=== PATIENT | female | born 1965 | race Caucasian/White ===

== ENCOUNTER 2021-11-27 10:15 | Outpatient (REF) | payer OTHER, SELFPAY ==
--- NOTE | ~2021-11-27 | XR_ITS ---
EXAMINATION: XR KNEE, RIGHT XR KNEE, LEFT CLINICAL INFORMATION: Pain. COMPARISON: None TECHNIQUE: 3 views of each knee. FINDINGS: LEFT KNEE: There is no evidence of acute fracture or dislocation of the left knee. Left knee joint spaces are maintained. No effusion is identified. Minimal spurring is seen undersurface of the patella. RIGHT KNEE: There is no evidence of acute fracture or dislocation of the right knee. No right knee effusion. Right knee joint spaces are maintained. Minimal patella spur. XR/XR knee RT 3V IMPRESSION: Minimal degenerative change of the patellofemoral joints bilaterally.
--- NOTE | ~2021-11-27 | XR_ITS ---
EXAMINATION: XR KNEE, RIGHT XR KNEE, LEFT CLINICAL INFORMATION: Pain. COMPARISON: None TECHNIQUE: 3 views of each knee. FINDINGS: LEFT KNEE: There is no evidence of acute fracture or dislocation of the left knee. Left knee joint spaces are maintained. No effusion is identified. Minimal spurring is seen undersurface of the patella. RIGHT KNEE: There is no evidence of acute fracture or dislocation of the right knee. No right knee effusion. Right knee joint spaces are maintained. Minimal patella spur. XR/XR knee LT 3V IMPRESSION: Minimal degenerative change of the patellofemoral joints bilaterally.
[2021-11-27 12:08] LABS: Creatinine Urine 153.04 mg/dL; Protein/Creatinine Ratio, Ur 0.07 (<0.2); Total Protein Urine Random 11 mg/dL (<12)
[2021-12-01 20:46] LABS: Anti DNA DS Antibody <1 IU/mL; SM/Ribonucleoprotein Ab <1.0 NEG AI (<1.0 NEG); Smith Protein <1.0 NEG AI (<1.0 NEG)
== END 2021-11-27 10:16 | disposition home or self-care (01) ==
LOC: HO.XRAY 10:15
PROVIDERS: Visit Provider Internal Medicine Rheumatology
DX: M25.561 Pain in right knee (principal); M25.562 Pain in left knee; R76.8 Other specified abnormal immunological findings in serum
CPT/HCPCS: 36415; 73562; 84156; 86225; 86235